=== PATIENT | female | born 1990 | race Caucasian/White ===

== ENCOUNTER 2018-02-11 06:04 | Inpatient (IN) ==
[~2018-02-11 06:04] MED LIST: CITRIC ACID/SODIUM CITRATE 30 ML CUP PO ONE; CefOXitin Inj 2 GM in Sodium Chloride 0.9% 100 ML IV ONE; FAMOTIDINE 20 MG/2 ML VIAL IVP ONE; LIDOCAINE HCL 2 % 10 ML JELLY URO-JECT TOPICAL PRN; LIDOCAINE W/ SODIUM BICARB 0.5 ML SYR SUBD PRN; Lactated Ringers 1,000 ML PRIMARY IV ONE; Lactated Ringers 1,000 ML PRIMARY IV SCH; Metoclopramide Inj 10 MG/2 ML VIAL IV ONE; Oxytocin 20 Units + LR 20 UNIT/1,000 ML BAG IV SCH
[2018-02-11] MEDS ORDERED: Sodium Chloride 0.9% 100 ML IV ONE (07:04)
[2018-02-11] MEDS ORDERED: PROMETHAZINE 25 MG/1 ML VIAL IM PRN (07:33)
[2018-02-11] MEDS ORDERED: LIDOCAINE W/ SODIUM BICARB 0.5 ML SYR SUBD PRN (07:33)
[2018-02-11] MEDS ORDERED: HYDROmorphone 2 MG/1 ML IVP PRN (07:33)
[2018-02-11] MEDS ORDERED: ONDANSETRON 4 MG/2 ML VIAL IVP PRN ×2 (07:33→09:29)
[2018-02-11] MEDS ORDERED: fentaNYL Inj 100 MCG/2 ML VIAL IVP PRN (07:33)
[2018-02-11 07:44] LABS: Hematocrit [HCT] 40.1 % (37.0-47.0); Hemoglobin [HGB] 13.6 g/dL (12.0-16.0); MEAN CORPUSCULAR HEMOGLOBIN 29.6 PG (27-31); MEAN CORPUSCULAR HGB CONC 33.9 g/dL (33-37); MEAN CORPUSCULAR VOLUME 87.4 FL (81-99); MEAN PLATELET VOLUME 11.2 FL (7.4-12.2); RED BLOOD COUNT 4.59 10^6/uL (4.20-5.40)
[2018-02-11] MEDS ORDERED: Lactated Ringers 1,000 ML PRIMARY IV SCH (07:45)
[2018-02-11] MEDS ORDERED: ePHEDrine Inj 50 MG/ML AMP ONE (07:54)
[2018-02-11] MEDS ORDERED: Lactated Ringers 1,000 ML PRIMARY IV ONE ×2 (07:54→08:21)
[2018-02-11] MEDS ORDERED: OXYTOCIN 10 UNIT/1 ML ONE (07:54)
[2018-02-11] MEDS ORDERED: ONDANSETRON 4 MG/2 ML VIAL ONE (08:36)
--- NOTE | 2018-02-11 09:23 | OB.OP.NOTE ---
Operative Report - - Surgeon: Zac Chamberlain MD Clinical Project Manager: Serafin Meneses MD Anesthesia Type: Regional Anesthesia Provider: Richard Gomez CRNA Surgery Date: 02/11/18 Preoperative Diagnosis: Persistent breech presentation Postoperative Diagnosis: same, delivered Procedure: Primary section Complications: none Estimated Blood Loss (mL): 800 Urine Output (mL): 50 Fluids: 2500 cc LR, 20 mU of pitocin Indications: Baby has been in a persistent breech presentation since her 20 week u/s. We discussed external cephalic version, however pt was not interested in this and opted for a primary section. Findings: viable male , lam breech presentation. Clear amniotic fluid. Description of Procedure: The patient was taken to the operating room where spinal anesthesia was found to be adequate. She was then prepared and draped in the normal sterile fashion in the dorsal supine position with a leftward tilt. A Pfannenstiel skin incision was then made with the scalpel and carried through to the underlying layer of fascia with the Bovie. The fascia was incised in the midline and the incision extended laterally with the Bovie. The superior aspect of the fascial incision was then grasped with the Bryan clamps, elevated, and the underlying rectus muscles dissected off bluntly. Attention was then turned to the inferior aspect of this incision which, in a similar fashion, was grasped with the Bryan clamps and the rectus muscles dissected off both bluntly and with the Bovie. The rectus muscle was then in the midline, and the peritoneum identified and entered digitally. The peritoneal incision was then extended superiorly and inferiorly with good visualization of the bladder. The Tim retractor was then inserted and the vesicouterine peritoneum was identified. The lower uterine segment was incised in a transverse fashion with the scalpel. The uterine incision was then extended laterally in a blunt fashion. The infant's head was delivered atraumatically. The nose and mouth were suctioned with the bulb suction and the cord clamped and cut after 45 seconds for delayed cord clamping. The was handed off to the awaiting nurse. Cord gases and cord blood were sent for analysis. The placenta was then removed manually; the uterus exteriorized, and cleared of all clots and debris. The uterine incision was repaired with 0 Vicryl in a running, locked fashion. A second layer of the same suture was used to obtain excellent hemostasis. The peritoneal cavity was then copiously irrigated with warm saline. The uterus was returned to the abdomen. The paracolic gutters were copiously irrigated with warm saline and a second look at the uterine incision continued to reveal excellent hemostasis. The peritoneum was closed with 3-0 Vicryl. The fascia reapproximated with 0 Vicryl in a running fashion. The subcutaneous space was irrigated copiously with warm saline and then closed first with 3-0 Vicryl and then more superficially with Insorb absorbable sutures. The skin was reapproximated with Steri-Strips and a Silverlon dressing applied. Fundal massage was completed with no clots in vaginal vault. The patient tolerated the procedure well. Sponge, lap, and needle counts were correct x2. Mefoxin was given preoperatively less than one hour prior to incision time. The patient was taken to the recovery room in stable condition.
[2018-02-11] MEDS ORDERED: FAMOTIDINE 20 MG/2 ML VIAL IVP PRN (09:29)
[2018-02-11] MEDS ORDERED: Nalbuphine Inj 20 MG/ML Ampule IVP PRN (09:29)
[2018-02-11] MEDS ORDERED: Naloxone Inj 0.01 MG, Sodium Chloride 0.9% vial 1 ML IVP PRN ×2 (09:29)
[2018-02-11] MEDS ORDERED: DIPH,PERTUSS,TET(ADACEL) VAC/PF 0.5 ML (Tdap) IM ONE (09:29)
[2018-02-11] MEDS ORDERED: CALCIUM CARBONATE 500 MG (TUMS) CHEWABLE TABLET PO PRN (09:29)
[2018-02-11] MEDS ORDERED: diphenhydrAMINE 25 MG CAPSULE PO PRN (09:29)
[2018-02-11] MEDS ORDERED: diphenhydrAMINE 50 MG/1 ML VIAL IV PRN (09:29)
[2018-02-11] MEDS ORDERED: Oxytocin 20 Units + LR 20 UNIT/1,000 ML BAG IV SCH (09:29)
[2018-02-11] MEDS ORDERED: HYDROmorphone 2 MG/1 ML IV PRN (09:29)
[2018-02-11] MEDS ORDERED: BUTORPHANOL TARTRATE 2 MG/1 ML VIAL IVP PRN (09:29)
[2018-02-11] MEDS ORDERED: LANOLIN HPA 40 GM TUBE TOPICAL PRN (09:29)
[2018-02-11] MEDS: KETOROLAC 15 MG/1 ML VIAL IVP SCH ×3 (09:39→21:30)
[2018-02-11] MEDS: oxyCODONE-ACETAMINOPHEN 5-325 TAB PO PRN ×2 (11:27→21:29)
[2018-02-11] MEDS: D5-LR 1,000 ML PRIMARY IV SCH ×2 (21:30→21:31)
[2018-02-12] MEDS: KETOROLAC 15 MG/1 ML VIAL IVP SCH ×2 (03:59→09:18)
[2018-02-12 05:28] LABS: Hematocrit [HCT] 31.8 % (37.0-47.0); Hemoglobin [HGB] 10.5 g/dL (12.0-16.0); MEAN CORPUSCULAR HEMOGLOBIN 29.7 PG (27-31); MEAN CORPUSCULAR VOLUME 90.1 FL (81-99); MEAN PLATELET VOLUME 10.9 FL (7.4-12.2); RED BLOOD COUNT 3.53 10^6/uL (4.20-5.40)
[2018-02-12] MEDS: oxyCODONE-ACETAMINOPHEN 5-325 TAB PO PRN ×4 (08:36→23:53)
[2018-02-12] MEDS: Senna/Docusate Tab 1 TAB TAB PO SCH ×2 (08:37→20:11)
[2018-02-12] MEDS: Prenatal Multivitamin Tab 1 TAB TAB PO SCH (08:37)
[2018-02-12] MEDS: IBUPROFEN 800 MG TABLET PO SCH ×2 (09:00→16:55)
--- NOTE | 2018-02-12 15:02 | OB.PROGRES ---
Subjective Post Day: 1 Pain Management: PO Elizabeth Catheter: No Flatus: Yes Lochia Color: Rubra/Red Scant < 10 ml Diet: Regular Feeding Method: Exculsively Ambulating: Yes Concerns / Additional Information: Doing well. Got dizzy with ambulation to the bathroom this morning, however she hadn't eaten and hadn't taken anything for pain for several hours prior. Voiding now without difficulty. + flatus. Denies calf pain, chest pain or shortness of breath. Objective - General General Appearance: POSITIVE: No Acute Distress, Cooperative - Cardiovacular Cardiovascular Exam: POSITIVE: RRR, No Murmur Edema: No Pedal Edema Extremities: Negative Suhail's - Bilaterally - Respiratory Respiratory Exam: POSITIVE: Clear to Auscultation - Bilaterally, Breathing Non Labored - Abdomen Bowel Sounds: Present Abdominal Wound Assessment: Silverlone Dressing Assesstment / Plan (1) S/P section Current Visit: Yes Status: Acute (2) Breech presentation of fetus delivered Current Visit: Yes Status: Acute Assessment / Plan: -routine cares. -rh positive. -rubella immune. -breast feeding coming along slowly. it web development consultant to come and see her this afternoon sometime. -possible d/c home in 1-2 days if feeding starts going better.
[2018-02-13] MEDS: IBUPROFEN 800 MG TABLET PO SCH ×3 (04:32→18:08)
[2018-02-13] MEDS: oxyCODONE-ACETAMINOPHEN 5-325 TAB PO PRN ×3 (04:33→15:26)
[2018-02-13 04:56] VITALS: O2SAT 98
[2018-02-13] MEDS: Prenatal Multivitamin Tab 1 TAB TAB PO SCH (09:18)
[2018-02-13] MEDS: Senna/Docusate Tab 1 TAB TAB PO SCH (09:18)
[2018-02-13 09:57] VITALS: RESP 16
--- NOTE | 2018-02-13 11:59 | DCSUMMARY ---
Hospitalization Summary Admit Date: 02/11/18 Discharge Date: 02/13/18 Primary Diagnosis:: s/p primary LTCS for breech presentation Primary Surgery and Date: 01/12/18 primary LTCS Delivery Type: Hospital Course: 27 yo G1 now P1 admitted on 02/11/18 for primary LTCS for breech presentation. On POD 1 she did have some lightheadedness but is feeling much better. Pain is well controlled. / Postop Complications: none apparent [place] Complications: none apparent Exam - Vitals Vital Signs: Vital Signs Temperature 98.1 F Temperature Source Temporal Artery Scan Pulse Rate [Apical] 68 Pulse Rate [Pulse Oximeter] 98 Pulse Rate 82 Respiratory Rate 16 Blood Pressure [Right Arm] 116/78 Blood Pressure 107/66 Pulse Ox 98 Oxygen Flow Rate RA Oxygen Delivery Method Room Air Height 5 ft 2 in Weight 154 lb 4 oz - General General Appearance: No Acute Distress, Cooperative - Head Head Exam: Normal Inspection - Eye Eye Exam: POSITIVE: Normal Appearance - Respiratory Respiratory Exam: POSITIVE: Clear to Auscultation - Bilaterally, Breathing Non Labored - Cardiovascular Cardiovascular Exam: POSITIVE: RRR - GI/Abdominal GI/Abdominal Exam: POSITIVE: Normal Bowel Sounds, Soft Additional GI/Abdominal Exam Details: silverlon in place - Extremities Extremities Exam: POSITIVE: Negative Suhail's sign, +1 Edema. NEGATIVE: Calf Tenderness - Neurological Neurological Exam: POSITIVE: Alert, Oriented x 3 - Psychiatric Psychiatric Exam: POSITIVE: Normal Affect, Normal Mood - Integumentary Integumentary Exam: POSITIVE: Normal Color Patient Problems - Patient Problem List (1) S/P section Current Visit: Yes Status: Acute Code(s): Z98.891 - History of uterine scar from previous surgery Support Text: 27 yo G1 now P1, POD 2 s/p primary LTCS for breech presentation -Pain well controlled -Passing flatus, no BM yet, tolerating regular diet -Breast feeding is going better. -D/c to home today, f/u with Dr. Chamberlain -Dr. Chamberlain did send in prescriptions yesterday -Precautions - no lifting greater than weight of baby x6 weeks Category: Surgical
[2018-02-13 13:52] VITALS: BP 110/80; TEMP 98.1
== END 2018-02-13 18:13 | disposition home or self-care (01) | DRG 788 ==
LOC: OBIP 06:04 → OBOR 07:35 → OBIP 09:12 → MED/SURG 09:22 → NUR 09:31 → OBIP 09:32
PROVIDERS: ADMIT Family Medicine; ATTEND Family Medicine